=== PATIENT | male | born 1965 | race Caucasian/White ===

== ENCOUNTER → 2016-08-03 | Outpatient (CLI) | payer OTHER ==
--- NOTE | 2016-08-03 09:08 | DX ---
Right hip series 2 views 0831 hours. History: Chronic persistent right hip pain. Remote trauma. Findings: Hip joint spaces are well-maintained bilaterally. The SI joints and symphysis are also norm al. On upright view there is leg length discrepancy with the right hip 10 mm above the left. There ar e no lytic or sclerotic osseous lesions. Soft tissues are unremarkable. Impression: 1. Leg length discrepancy with the right hip 10 mm higher than the left. 2. No hip joint space narrowing.
== END ==
LOC: BMCIMAGING 08:18
PROVIDERS: ATTEND Orthopaedic Surgery
DX: M21.70 Unequal limb length (acquired), unspecified site (principal)

== ENCOUNTER → 2016-08-31 | Outpatient (CLI) | payer OTHER | LOC: BMCIMAGING 08:30 | PROVIDERS: ATTEND Orthopaedic Surgery | PROC: 3E0U3GC Introduction of Other Therapeutic Substance into Joints, Percutaneous Approach (ICD-10-PCS; principal; 2016-08-31) | DX: M16.11 Unilateral primary osteoarthritis, right hip (principal) ==

== ENCOUNTER → 2017-12-25 | Outpatient (CLI) | payer OTHER | LOC: BMCIMAGING 16:04 | PROVIDERS: ATTEND Allergy & Immunology Allergy | DX: Z03.89 Encounter for observation for other suspected diseases and conditions ruled out (principal) ==